=== PATIENT | male | born 1965 | race Caucasian/White ===

== ENCOUNTER 2018-04-17 06:10 | Inpatient (IN) | payer BC ==
[~2018-04-17] VITALS: Ht 200.7 cm; Wt 175.2 kg
[~2018-04-17 06:10] MED LIST: ESCITALOPRAM OX10 MG PO; FLOMAX0.4 MG PO; PERCOCET 5/31 TABLET PO; TYLENOL WITH C1 EACH PO; ZOFRAN ODT4 MG PO
[2018-04-17 06:58] LABS: HEMATOCRIT 43.5 % (38.0-50.0); HEMOGLOBIN 15.2 G/DL (12.5-16.6); MCH 31.2 PG (29.0-34.0); MCHC 34.9 G/DL (30.0-36.0); MCV 89.3 FL (86-99); PLATELET COUNT 224 K/uL (156-360); RBC DIS.WIDTH-CV 12.7 % (11.8-14.6); RBC DIS.WIDTH-SD 41.7 % (39-53); RED BLOOD COUNT 4.87 M/uL (4.00-5.50); WHITE BLOOD COUNT 12.5 K/uL (4.1-10.2)
[2018-04-17 07:28] LABS: TROP-I INTERPRETATION NEGATIVE; TROPONIN-I < 0.01 ng/mL (0.0-0.30)
[2018-04-17 07:31] LABS: CHLORIDE 107 MEQ/L (99-109); CREATININE 0.8 MG/DL (0.6-1.3); GFR ESTIMATE (CALCULATED) > 59 mL/min/ (58.99-99999); GLUCOSE 108 mg/dL (70-99); POTASSIUM 4.4 MEQ/L (3.7-5.4); SODIUM 140 MEQ/L (136-147); UREA NITROGEN (BUN) 18 mg/dL (9-23)
[2018-04-17 10:48] LABS: PTT 27.4 SEC (25-37)
[2018-04-17] MEDS ORDERED: MOBIC15 MG PO (10:59)
[2018-04-17] MEDS ORDERED: TRAMADOL HCL50 MG PO (10:59)
[2018-04-17 13:34] LABS: TROP-I INTERPRETATION NEGATIVE; TROPONIN-I 0.07 ng/mL (0.0-0.30)
[2018-04-17 14:16] VITALS: BP 127/82
[2018-04-17 16:51] LABS: INTER. NORMALIZED RATIO 1.2
[2018-04-17 19:28] LABS: TROP-I INTERPRETATION NEGATIVE; TROPONIN-I 0.04 ng/mL (0.0-0.30)
[2018-04-17 20:04] VITALS: BP 135/90
[2018-04-17 23:44] VITALS: BP 119/58
[2018-04-18 04:03] VITALS: BP 109/64
[2018-04-18 05:49] LABS: HEMATOCRIT 40.8 % (38.0-50.0); HEMOGLOBIN 13.8 G/DL (12.5-16.6); MCH 30.5 PG (29.0-34.0); MCHC 33.8 G/DL (30.0-36.0); MCV 90.1 FL (86-99); PLATELET COUNT 216 K/uL (156-360); RBC DIS.WIDTH-CV 12.7 % (11.8-14.6); RBC DIS.WIDTH-SD 41.8 % (39-53); RED BLOOD COUNT 4.53 M/uL (4.00-5.50); WHITE BLOOD COUNT 10.8 K/uL (4.1-10.2)
[2018-04-18 06:17] LABS: ALBUMIN 3.6 G/DL (3.2-4.8); ALKALINE PHOSPHATASE 54 IU/L (3-129); ALT (GPT) 13 IU/L (3-49); AST (GOT) 12 IU/L (2-34); CHLORIDE 106 MEQ/L (99-109); CREATININE 0.9 MG/DL (0.6-1.3); GFR ESTIMATE (CALCULATED) > 59 mL/min/ (58.99-99999); GLUCOSE 101 mg/dL (70-99); POTASSIUM 4.7 MEQ/L (3.7-5.4); SODIUM 140 MEQ/L (136-147); TOTAL BILIRUBIN 0.6 MG/DL (0.0-1.0); TOTAL PROTEIN 6.1 G/DL (6.4-8.3); UREA NITROGEN (BUN) 15 mg/dL (9-23)
[2018-04-18 08:15] VITALS: BP 125/70
[2018-04-18 13:37] LABS: INTER. NORMALIZED RATIO 1.1
[2018-04-18 13:39] LABS: PTT 46.9 SEC (25-37)
[2018-04-18 16:11] VITALS: BP 136/69
[2018-04-18 19:48] VITALS: BP 140/68
[2018-04-19 00:24] VITALS: BP 125/57
[2018-04-19 03:55] VITALS: BP 130/61
[2018-04-19 07:40] VITALS: BP 136/71
[2018-04-19 09:23] LABS: INTER. NORMALIZED RATIO 1.1
[2018-04-19 09:26] LABS: PTT 61.9 SEC (25-37)
[2018-04-19] MEDS ORDERED: LOVENOX100 MG/1 M SC (10:45)
[2018-04-19] MEDS ORDERED: COUMADIN5 MG PO (10:45)
[2018-04-19] MEDS ORDERED: LOVENOX80 MG/0.8 SC (10:45)
== END 2018-04-19 12:32 | disposition home or self-care (01) | DRG 176 ==
LOC: EME 06:10 → ENRESERV 11:34 → EDOF 11:34 → 5SOUTH 11:34 → ENRESERV 12:26 → 5SOUTH 13:57
PROVIDERS: Hospitalist; Internal Medicine; Internal Medicine Hematology & Oncology; Nurse Practitioner Family; Physician Assistant
DX: I26.99 Other pulmonary embolism without acute cor pulmonale (principal); E66.01 Morbid (severe) obesity due to excess calories; Z68.42 Body mass index [BMI] 45.0-49.9, adult; Z87.442 Personal history of urinary calculi; D32.0 Benign neoplasm of cerebral meninges; N40.0 Benign prostatic hyperplasia without lower urinary tract symptoms; H61.23 Impacted cerumen, bilateral; R55 Syncope and collapse
CPT/HCPCS: 70450; 70551; 71046; 71275; 80048; 80053; 81240 90; 81241 90; 84484; 85027; 85379; 85610; 85730; 93005; 93306; 99281; 99285; J1650; J1885; J7030